=== PATIENT | male | born 2000 | race African-American/Black ===

== ENCOUNTER 2022-04-16 00:36 | Emergency (ER) | payer SELFPAY ==
[~2022-04-16] VITALS: Ht 175.3 cm; Wt 77.0 kg
[2022-04-16 00:48] VITALS: BP 121/78
== END 2022-04-16 01:42 | disposition left against medical advice (07) ==
LOC: EMS 00:39
DX: R11.0 Nausea (principal); Z53.21 Procedure and treatment not carried out due to patient leaving prior to being seen by health care provider